=== PATIENT | male | born 1945 | race Caucasian/White ===

== ENCOUNTER 2018-03-09 20:36 | Emergency (ER) | payer OTHER, BC ==
[~2018-03-09] VITALS: Ht 167.6 cm; Wt 77.3 kg
[~2018-03-09 20:36] MED LIST: ADDE20; HYDR-3533 PO; LEVO100T4 PO; SIMV10TA PO
[2018-03-09 20:41] VITALS: BP 152/71; PULSE 55; RESP 16; TEMP 97.7; O2SAT 98
[2018-03-09] MEDS ORDERED: ADDE10 PO (20:52)
[2018-03-09] MEDS ORDERED: LEVO100T5 PO (20:52)
[2018-03-09] MEDS ORDERED: SIMV40TA PO (20:52)
[2018-03-09] MEDS ORDERED: SODIUM CHLOR 0.9% 1000 ML INJ 1,000 ML IV ONE (21:05)
[2018-03-09] MEDS ORDERED: METOCLOPRAMIDE HCL 10 MG/2 ML VIAL IV PUSH ONE (21:15)
[2018-03-09] MEDS ORDERED: SODIUM CHLORIDE 0.9% FLUSH 10 ML FLUSH IVF PRN (21:15)
--- NOTE | 2018-03-09 21:28 | RADRPT ---
EXAM DATE: 03/09/2018 9:23 PM EDT AGE/SEX: 72 years / Male INDICATIONS: Palpitations CLINICAL DATA: This is the patient's initial encounter. Patient reports that signs and symptoms have been present for 1 day and indicates a pain score of 0/10. MEDICAL/SURGICAL HISTORY: None. None. COMPARISON: No prior [facility] exams available for comparison. FINDINGS: A single AP view of the chest demonstrates the lungs to be symmetrically aerated without evidence of mass, infiltrate or effusion. The cardiomediastinal contours are unremarkable. Osseous structures a re intact. CONCLUSION: Negative examination. Electronically signed by: Issac Mccullough MD 03/09/2018 9:27 PM EDT
--- NOTE | 2018-03-09 21:49 | RADRPT ---
EXAM DATE: 03/09/2018 9:46 PM EDT AGE/SEX: 72 years / Male INDICATIONS: Dizziness. CLINICAL DATA: This is the patient's initial encounter. Patient reports that signs and symptoms have been present for 1 day and indicates a pain score of 4/10. MEDICAL/SURGICAL HISTORY: . Umbilical hernia Mastectomy, left. RADIATION DOSE: 56.35 CTDI (mGy) COMPARISON: No prior [facility] exams available for comparison. TECHNIQUE: CT of the head without contrast. Using automated exposure control and adjustment of the mA and/or kV according to patient size, radiation dose was kept as low as reasonably achievable to ob tain optimal diagnostic quality images. FINDINGS: Cerebrum: The ventricles are normal for age. No evidence of midline shift, mass lesion, hemorrhage or acute infarction. No extraaxial fluid collections are seen. Posterior Fossa: The cerebellum and brainstem are intact. The 4th ventricle is midline. The cerebe llopontine angle is unremarkable. Extracranial: The visualized portion of the orbits is intact. Skull: The calvaria is intact. No evidence of skull fracture. CONCLUSION: 1. Negative CT Head non contrast. 2. No evidence of acute infarct, hemorrhage, mass or edema. Electronically signed by: Issac Mccullough MD 03/09/2018 9:47 PM EDT
[2018-03-09 21:53] VITALS: BP 168/81; PULSE 55; RESP 16; O2SAT 99
[2018-03-09] MEDS ORDERED: ONDANSETRON HCL 4 MG/2 ML VIAL IV PUSH ONE (22:00)
--- NOTE | 2018-03-09 22:16 | PD ---
HPI Chief Complaint: GI Complaint Time Seen by Provider: 21:05 Travel History International Travel<30 days: No Contact w/Intl Traveler<30days: No Traveled to known affect area: No History of Present Illness HPI 72-year-old male presents to the emergency department from [place] by EMS transport for near syncopal episode. Patient states he was sitting during a [employer] service and suddenly started developing dizziness nausea and diaphoresis with near syncopal episode. Patient states he was placed supine by parishioners and became more nauseated was placed upright without loss of consciousness no focal upper or lower extremity numbness tingling or weakness just generalized weakness. Patient denies chest pain shortness of breath palpitations. Patient denies any change in mentation or speech. Patient was given IV fluids and Zofran in route to the hospital. Upon arrival to the hospital patient states he felt slightly better. Patient has history of ADD hyperlipidemia and hypothyroidism. Patient has been taking his medications as prescribed. Patient's had no recent febrile illness or respiratory illness. Patient denies any visual disturbance diplopia or loss of vision. No headache. Patient denies chest pain. Patient denies abdominal pain. Patient denies flank pain. PFSH Past Medical History Narrative Medical ADD, dyslipidemia, hypothyroidism; no tobacco use; nursing notes reviewed Heart Rhythm Problems: No Cardiac Catheterization: No Cardiovascular Problems: No High Cholesterol: Yes Congestive Heart Failure: No Diabetes: No Inguinal Hernia: Yes (umbilical hernia repair) Thyroid Disease: Yes Past Surgical History Mastectomy: Yes (left partial) Tonsillectomy: Yes Family History Family Myocardial Infarction: Yes Social History Alcohol Use: Yes (occ) Tobacco Use: No Substance Use: No Allergies-Medications (Allergen,Severity, Reaction): Coded Allergies: No Known Allergies (Unverified , 03/09/18) Reported Meds & Prescriptions Reported Meds & Active Scripts Active Meclizine (Meclizine HCl) 25 Mg Tab 25 Mg PO Q6HR PRN Zofran Odt (Ondansetron Odt) 4 Mg Tab 4 Mg SL Q6HR PRN Reported Levothyroxine (Levothyroxine Sodium) 100 Mcg Tab 100 Mcg PO DAILY Simvastatin 40 Mg Tab 40 Mg PO DAILY Adderall (Amphetamine-Dextroamphetamine) 10 Mg Tab 10 Mg PO BID Avoid late evening doses. Space doses at least 4 to 6 hours if more than once/day dosing. Review of Systems Except as stated in HPI: all other systems reviewed are Neg General / Constitutional: No: Fever, Chills Eyes: No: Diploplia, Blurred Vision, Photophobia, Visual changes HENT: Positive: Vertigo, Lightheadedness, No: Headaches, Congestion Cardiovascular: Positive: Diaphoresis, Syncope, No: Chest Pain or Discomfort, Palpitations Respiratory: No: Cough, Shortness of Breath (Near syncope) Gastrointestinal: Positive: Nausea, Vomiting, No: Abdominal Pain Genitourinary: No: Dysuria, Flank Pain Musculoskeletal: No: Myalgias, Arthralgias Skin: No Rash Neurologic: Positive: Weakness, Dizziness, Syncope, No: Focal Abnormalities, Coordination Problem, Headache (Near syncope), Change in Mentation, Slurred Speech, Paresthesia, Incontinence, Seizures Psychiatric: Positive: Anxiety, No: Depression Endocrine: No: Heat Intolerance, Cold Intolerance Hematologic/Lymphatic: No: Easy Bruising Physical Exam Narrative GENERAL: Well-developed well-nourished male no acute distress or respiratory distress; GCS 15 SKIN: Warm and dry. HEAD: Atraumatic. Normocephalic. EYES: Pupils equal and round reactive to light. No scleral icterus. No injection or drainage. ENT: No nasal bleeding or discharge. Mucous membranes pink and moist. NECK: Trachea midline. No JVD. CARDIOVASCULAR: Decreased regular rate and rhythm. RESPIRATORY: No accessory muscle use. Clear to auscultation. Breath sounds equal bilaterally. GASTROINTESTINAL: Abdomen soft, non-tender, nondistended. Hepatic and splenic margins not palpable. MUSCULOSKELETAL: Extremities without clubbing, cyanosis, or edema. No obvious deformities. NEUROLOGICAL: Awake and alert. No obvious cranial nerve deficits. Motor grossly within normal limits. Five out of 5 muscle strength in the arms and legs. No limb ataxia. No pronator drift. Sensory exam intact. No clonus DTRs normal speech. PSYCHIATRIC: Appropriate mood and affect; insight and judgment normal. Data Data Last Documented VS Vital Signs Date Time Temp Pulse Resp B/P (MAP) Pulse Ox O2 Delivery O2 Flow Rate FiO2 03/10/18 03:48 03/10/18 01:19 87 16 96 Room Air 03/09/18 20:41 97.7 Orders Orders Metoclopramide Inj (Reglan Inj) (03/09/18 21:15) Complete Blood Count With Diff (03/09/18 21:05) Comprehensive Metabolic Panel (03/09/18 21:05) Magnesium (Mg) (03/09/18 21:05) B-Type Natriuretic Peptide (03/09/18 21:05) Ckmb (Isoenzyme) Profile (03/09/18 21:05) Troponin I (03/09/18 21:05) Act Partial Throm Time (Ptt) (03/09/18 21:05) Prothrombin Time / Inr (Pt) (03/09/18 21:05) Urinalysis - C+S If Indicated (03/09/18 21:05) Chest, Single Ap (03/09/18 21:05) Ct Brain W/O Iv Contrast(Rout) (03/09/18 21:05) Ecg Monitoring (03/09/18 21:05) Iv Access Insert/Monitor (03/09/18 21:05) Oximetry (03/09/18 21:05) Sodium Chloride 0.9% Flush (Ns Flush) (03/09/18 21:15) Sodium Chlor 0.9% 1000 Ml Inj (Ns 1000 M (03/09/18 21:05) Ondansetron Inj (Zofran Inj) (03/09/18 22:00) Meclizine (Antivert) (03/09/18 23:30) Troponin I (03/10/18 01:18) Ed Discharge Order (03/10/18 03:42) Labs Laboratory Tests Test 03/09/18 21:49 03/09/18 23:21 03/10/18 01:28 White Blood Count 14.6 TH/MM3 Red Blood Count 5.14 MIL/MM3 Hemoglobin 14.8 GM/DL Hematocrit 44.6 % Mean Corpuscular Volume 86.8 FL Mean Corpuscular Hemoglobin 28.8 PG Mean Corpuscular Hemoglobin Concent 33.1 % Red Cell Distribution Width 14.5 % Platelet Count 225 TH/MM3 Mean Platelet Volume 8.9 FL Neutrophils (%) (Auto) 75.7 % Lymphocytes (%) (Auto) 13.9 % Monocytes (%) (Auto) 5.1 % Eosinophils (%) (Auto) 4.9 % Basophils (%) (Auto) 0.4 % Neutrophils # (Auto) 11.1 TH/MM3 Lymphocytes # (Auto) 2.0 TH/MM3 Monocytes # (Auto) 0.7 TH/MM3 Eosinophils # (Auto) 0.7 TH/MM3 Basophils # (Auto) 0.1 TH/MM3 CBC Comment DIFF FINAL Differential Comment Prothrombin Time 10.5 SEC Prothromb Time International Ratio 1.0 RATIO Activated Partial Thromboplast Time 26.0 SEC Blood Urea Nitrogen 15 MG/DL Creatinine 1.15 MG/DL Random Glucose 114 MG/DL Total Protein 7.8 GM/DL Albumin 4.0 GM/DL Calcium Level 9.0 MG/DL Magnesium Level 2.3 MG/DL Alkaline Phosphatase 82 U/L Aspartate Amino Transf (AST/SGOT) 25 U/L Alanine Aminotransferase (ALT/SGPT) 40 U/L Total Bilirubin 0.4 MG/DL Sodium Level 140 MEQ/L Potassium Level 4.0 MEQ/L Chloride Level 104 MEQ/L Carbon Dioxide Level 26.1 MEQ/L Anion Gap 10 MEQ/L Estimat Glomerular Filtration Rate 63 ML/MIN Total Creatine Kinase 66 U/L Troponin I LESS THAN 0.02 NG/ML LESS THAN 0.02 NG/ML B-Type Natriuretic Peptide 10 PG/ML Urine Color LIGHT-YELLOW Urine Turbidity CLEAR Urine pH 7.0 Urine Specific Taylor 1.012 Urine Protein NEG mg/dL Urine Glucose (UA) NEG mg/dL Urine Ketones 10 mg/dL Urine Occult Blood NEG Urine Nitrite NEG Urine Bilirubin NEG Urine Urobilinogen LESS THAN 2.0 MG/DL Urine Leukocyte Esterase NEG Urine WBC 1 /hpf Urine Mucus FEW /lpf Microscopic Urinalysis Comment CULT NOT INDICATED MDM Medical Decision Making Medical Screen Exam Complete: Yes Emergency Medical Condition: Yes Medical Record Reviewed: Yes Interpretation(s) EKG sinus bradycardia first-degree AV block rate [address] elevation injury pattern or ectopy Vital Signs Date Time Temp Pulse Resp B/P (MAP) Pulse Ox O2 Delivery O2 Flow Rate FiO2 03/09/18 20:41 97.7 55 16 152/71 [address] 03/09/182104 Signed Impressions: CONCLUSION: 1. Negative CT Head non contrast. 2. No evidence of acute infarct, hemorrhage, mass or edema. Chest X-Ray 03/09/182104 Signed Impressions: CONCLUSION: Negative examination. Differential Diagnosis near syncope, syncope, arrhythmia, vertigo, labyrinthitis, TIA, CVA, viral syndrome, electrolyte disturbance, ICH Narrative Course Patient placed on rn cardiac cath IV access obtained specimens collected and sent for resulting normal saline bolus administered Called the patient's bedside is bradycardic with heart rate of 44 complaining of increased nausea without diaphoresis normotensive patient placed partially supine repeat blood pressure remains normotensive and heart rate is returning to normal range patient administered Reglan 10 mg IV had received Zofran 4 mg in route At 11:28 PM patient reports that he feels well rating his cell phone spouse waiting at bedside patient reports only when he tries to a supine or tilted backward as he noted the dizziness and denies any nausea at this time. Patient' s vital signs are stable only mild bradycardia heart rate of 58. At 1:17 AM patient feels well after meclizine symptoms have resolved no dizziness no lightheadedness and no nausea. Will obtain second troponin and give patient trial of ambulation about the emergency department to determine outpatient disposition. @ 3:40 patient remains asymptomatic after meclizine and wishes to go home -- appears stable for outpatient management. Diagnosis Primary Impression: Vertigo Additional Impression: Vasovagal near-syncope Referrals: Primary Care Physician 2 days Patient Instructions: General Instructions Additional Instructions: Increase fluid hydration Follow-up with primary care provider No driving vehicle or climbing ladders or swimming while taking medication for dizziness Continue current medications as presently prescribed Return the emergency department for any concerns or change in condition Med/Other Pt SpecificInfo: Prescription(s) given Scripts Meclizine (Meclizine) 25 Mg Tab 25 MG PO Q6HR Y for VERTIGO, #15 TAB 0 Refills Prov: Michelle Syed MD 03/10/18 Ondansetron Odt (Zofran Odt) 4 Mg Tab 4 MG SL Q6HR Y for Nausea/Vomiting, #10 TAB 0 Refills Prov: Michelle Syed MD 03/10/18 Disposition: 01 DISCHARGE HOME Condition: Stable Michelle Syed MD March 09, 2018 22:16
[2018-03-09 22:17] LABS: AUTOMATED NEUTROPHIL # 11.1 TH/MM3 (1.8-7.7); BASOPHIL # 0.1 TH/MM3 (0-0.2); BASOPHIL % 0.4 % (0.0-2.0); EOSINOPHIL # 0.7 TH/MM3 (0-0.4); EOSINOPHIL % 4.9 % (0.0-4.0); HEMATOCRIT 44.6 % (39.0-51.0); HEMOGLOBIN 14.8 GM/DL (13.0-17.0); LYMPH % 13.9 % (9.0-44.0); MEAN CELL VOLUME 86.8 FL (80.0-100.0); MEAN CORPUSCULAR HEMOGLOBIN 28.8 PG (27.0-34.0); MEAN CORPUSCULAR HGB CONC 33.1 % (32.0-36.0); MEAN PLATELET VOLUME 8.9 FL (7.0-11.0); MONO % 5.1 % (0.0-8.0); MONOCYTE # 0.7 TH/MM3 (0-0.9); NEUT % 75.7 % (16.0-70.0); PLATELET COUNT 225 TH/MM3 (150-450); RED BLOOD COUNT 5.14 MIL/MM3 (4.50-5.90); RED CELL DISTRIBUTION WIDTH 14.5 % (11.6-17.2); WHITE BLOOD COUNT 14.6 TH/MM3 (4.0-11.0)
[2018-03-09 22:30] LABS: AST (GOT) 25 U/L (15-37); BICARBONATE 26.1 MEQ/L (21.0-32.0); BLOOD UREA NITROGEN 15 MG/DL (7-18); CHLORIDE 104 MEQ/L (98-107); CREATININE 1.15 MG/DL (0.60-1.30); GLOMERULAR FILTRATION RATE 63 ML/MIN (>89); GLUCOSE,RANDOM 114 MG/DL (74-106); MAGNESIUM 2.3 MG/DL (1.5-2.5); SODIUM (NA) 140 MEQ/L (136-145)
[2018-03-09 22:31] LABS: ALT (GPT) 40 U/L (12-78)
[2018-03-09 22:35] LABS: ALKALINE PHOSPHATASE 82 U/L (45-117); TOTAL BILIRUBIN ADULT 0.4 MG/DL (0.2-1.0); TOTAL PROTEIN 7.8 GM/DL (6.4-8.2); TROPONIN I LESS THAN 0.02 NG/ML (0.02-0.05)
[2018-03-09 22:40] LABS: PROTHROMBIN TIME - PATIENT 10.5 SEC (9.8-11.6)
[2018-03-09 23:11] VITALS: BP 172/78; PULSE 59; RESP 16; O2SAT 98
[2018-03-09] MEDS ORDERED: MECLIZINE HCL 25 MG TAB PO ONE (23:30)
[2018-03-09 23:46] LABS: BILIRUBIN, URINE NEG (NEG); BLOOD, URINE NEG (NEG); GLUCOSE,URINE NEG (NEG); KETONE, URINE 10 mg/dL (NEG); MUCUS URINE FEW /lpf (OCC); NITRITE,URINE NEG (NEG); URINE COLOR LIGHT-YELLOW (YELLW/STRAW); URINE LEUKOCYTE ESTERASE NEG (NEG)
[2018-03-09 23:49] VITALS: BP 172/78; PULSE 46; RESP 16; O2SAT 96
[2018-03-10 01:19] VITALS: BP 143/77; PULSE 87; RESP 16; O2SAT 96
[2018-03-10] MEDS ORDERED: MECL-62 PO (03:44)
[2018-03-10] MEDS ORDERED: ZOFR4TAB3 SL (03:44)
== END 2018-03-10 04:10 | disposition home or self-care (01) ==
LOC: NEPC 20:36
DX: R42 Dizziness and giddiness (principal); R55 Syncope and collapse; E03.9 Hypothyroidism, unspecified; R61 Generalized hyperhidrosis
CPT/HCPCS: 70450; 71045; 80053; 81001; 82550; 83735; 83880; 84484; 85025; 85610; 85730; 96361; 96374; 96375; 99285; J2765; J7030